=== PATIENT | male | born 1930 | race Caucasian/White ===

== ENCOUNTER 2016-09-05 13:09 | Emergency (ER) | payer MEDICARE, OTHER ==
[~2016-09-05] VITALS: Ht 165.1 cm; Wt 92.7 kg
[~2016-09-05 13:09] MED LIST: CHLO25TA2 PO; CITA10SO PO; GLUCOSAMINE PO; LOR75 PO; LOVA20TA7 PO; MVI PO; POTA20TA16 PO; TYL325 PO
[2016-09-05 13:12] VITALS: BP 153/77; PULSE 122; RESP 15; O2SAT 97
[2016-09-05] MEDS ORDERED: Ondansetron 2 mg/mL 2 mL Inj IV PRN (13:30)
[2016-09-05 14:13] LABS: BASOPHILS % (AUTO) 0.1 % (0-3); EOSINOPHILS % (AUTO) 0.6 % (0-5); MONOCYTES % (AUTO) 2.3 % (4-12); Mean Corpuscular Hemoglobin 32.5 pg (27.0-35.0); NEUTROPHILS % (AUTO) 92.9 % (40-74); Platelet Count 184 bil/L (150-400)
--- NOTE | 2016-09-05 14:31 | ED.REPORT ---
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 The patient fell from the second or third rung of a ladder while pruning trees in his yard. He is ambulatory and does not describe any modifying factors for the pain. Associated symptoms include weakness in lower extremities and diarrhea onset today. He denies any incontinence, chest pain, feelings of faintness, fever, SOB , or abdominal pain. He reports having done a lot of physical yard work yesterday and has not eaten anything today. He currently has no PCP and takes hydrocodone medication at home. He does not smoke. Nursing Notes Stated Complaint: BACK PAIN,FELL OFF LADDER Chief Complaint: Multiple Trauma/Fall Nursing Notes Reviewed: Yes Allergies: Coded Allergies: No Known Allergies (Verified , 03/27/09) Scheduled Acetaminphen-Expunged Drug, Do Not Renew! (Acetaminphen-Expunged Drug, Do Not Renew!) 325 Mg Tablet 650 MG PO PRN Chlorthalidone (Chlorthalidone) 25 Mg Tablet 25 MG PO DAILY Chlorthalidone-Expunged Drug, Do Not Renew! (Chlorthalidone-Expunged Drug, Do Not Renew!) 25 Mg Tablet 25 MG PO DAILY Citalopram-Expunged Drug, Do Not Renew! (Citalopram-Expunged Drug, Do Not Renew! ) 10 Mg/5 Ml Solution 10 MG PO AM Glucosamine Sulfate (Glucosamine) Tab 1,500 MG PO DAILY Hydrocod/APAP-Expunged, Do Not Renew! (Hydrocod/APAP 7.5/500-Expunged, Do Not Renew!) 1 Tab Tablet 1 TAB PO PRN Lovastatin-Expunged Drug, Do Not Renew! (Mevacor-Expunged Drug, Do Not Renew!) 20 Mg Tablet 20 MG PO HS Potassium Chl-Expunged Drug, Do Not Renew! (G-Ukh-Qregoban Drug, Do Not Renew!) 20 Meq Tab.prt.sr 20 MEQ PO BID Potassium Chloride (Potassium Chloride) 40 Meq/15 Ml Liquid 40 MEQ PO DAILY Pramipexole Dihydrochloride (Pramipexole Dihydrochloride) 0.5 Mg Tablet 0.5 MG PO HS Terazosin (Terazosin) 5 Mg Capsule 10 MG PO HS Therapeutic Multivit/Minerals-Expunged Drug, (Therapeutic Multivit/Minerals- Expunged Drug,) 1 Ea Tab 1 TAB PO DAILY Venlafaxine (Venlafaxine) 37.5 Mg Tablet 37.5 MG PO DAILY Scheduled PRN Hydrocodone-Acetaminophen 7.5-325 mg (Hydrocodone-Acetaminophen 7.5-325 mg) 1 Each Tablet 1-2 TABLET PO Q4H PRN PRN For Pain Tramadol (Tramadol) 50 Mg Tablet 50 MG PO Q6H PRN PRN For Pain Miscellaneous Medications Acetaminophen (Tylenol Arthritis) 650 Mg Tablet.er 650 MG PO Cholecalciferol (Vitamin D3) (Vitamin D3) 1,000 Unit Tab.chew 1,000 UNIT PO General Time Seen by MD: 13:19 Chief Complaint Back pain Hx Obtained From: Patient Arrived By: Walk-in Sudden in Onset?: Yes Onset Occurred: 4 days ago Symptom Duration: Since onset Caused by: Fall (2nd or 3rd rung of ladder) Location: : Generalized Radiation: : Does not radiate Severity: Current: Moderate Severity: Maximum: Moderate Recent Healthcare: No recent doctor visit Similar Sx Previous: No Past Medical History Past Medical History Hypertension Depression Hyperlipidemia Arthritis Past Surgical History Total hip arthroplasty Left carpal tunnel release bilateral inguinal hernia repear Family History Diabetes mellitus Smoking History Never Smoker Social History Alcohol Use: 1-3 per day Drug Use: Denies drug use Other Social History: Good social support, , Local resident Occupation Retired Ambulatory Status Independent Review of Systems Constitutional: Denies: Fever Respiratory: Denies: Shortness of breath GI: Reports: Diarrhea, Denies: Abdominal pain Male: Denies Incontinence Musculoskeletal: Reports: Back pain Neurologic: Reports: Weakness (lower extremities), Denies: Lightheaded Complete sys rev & neg: except as marked. Physical Exam Initial Vital Signs Vital Signs (First) Date Time Temp Pulse Resp B/P Pulse Ox O2 Delivery O2 Flow Rate FiO2 09/05/16 13:12 36 122 15 153/77 97 Room Air Initial VS: Reviewed General/Constitutional: Awake, Alert Respiratory / Chest: Atraumatic, Breath sounds NL, Breath sounds = bilat, No respiratory distress Cardiovascular: Heart rate NL, Regular rhythm, Heart sounds NL Heart rate is 104 at recheck. Abdomen: Atraumatic, Soft Tenderness/Guarding/Rebound: Positive: Tender epigastric (mild tenderness to epigastric) possible pulsatile mass. Back: Atraumatic, Full range of motion Neurologic: Oriented X3, Speech NL, No motor deficits, No sensory deficits Neck: Atraumatic, Supple, Full range of motion Lower Extremity / Pelvis / MS: Atraumatic, Full range of motion Skin: Atraumatic, Color NL, No rash, Warm, Dry Head / Eyes: Atraumatic, Normocephalic, PERRL, EOMI ENT: Atraumatic, Airway patent, Mucous membranes moist Upper Extremity / MS: Atraumatic, Full range of motion Psychiatric: Affect NL, Mood NL Interpretation & Diagnostics Interpretation & Diagnostics: Abdomen US IMPRESSION: A normal caliber of the aorta. A small portion of the aorta could not be seen due to bowel gas. Depending on clinical symptoms followup by CT scanning might be warranted. Dictated by: Denis Novak M.D. on 09/05/2016 at 14:54 Approved by: Denis Novak M.D. on 09/05/2016 at 14:55 Lab Results Interpretation Result Diagram: 09/05/16 1400 09/05/16 1400 Test 09/05/16 14:00 09/05/16 14:27 09/05/16 14:30 09/05/16 15:29 White Blood Count 8.1th/mm3 (3.8-10.1) Red Blood Count 4.46mil/mm3 (4.40-5.80) Hemoglobin 14.5g/dL (13.8-17.2) Hematocrit 41.5% (41.0-50.0) Mean Corpuscular Volume 93.0fL (81-100) Mean Corpuscular Hemoglobin 32.5pg (27.0-35.0) Mean Corpuscular Hemoglobin Concent 34.9% (32.0-37.0) Red Cell Distribution Width 14.2% (12.3-15.4) Platelet Count 184bil/L (150-400) Neutrophils (%) (Auto) 92.9% (40-74) Lymphocytes (%) (Auto) 4.0% (14-46) Monocytes (%) (Auto) 2.3% (4-12) Eosinophils (%) (Auto) 0.6% (0-5) Basophils (%) (Auto) 0.1% (0-3) Sodium Level 135mEq/L (134-144) Potassium Level 4.3mEq/L (3.5-5.2) Chloride Level 101mEq/L (97-108) Carbon Dioxide Level 18mmol/L (18-29) Blood Urea Nitrogen 24mg/dL (8-27) Creatinine 1.13mg/dL (0.76-1.27) Estimat Glomerular Filtration Rate 66mL/min (>59) Glucose Level 185mg/dL (60-99) Calcium Level 8.3mg/dL (8.5-10.1) Magnesium Level 1.6mg/dL (1.6-2.6) Total Bilirubin 0.9mg/dL (0.0-1.2) Aspartate Amino Transf (AST/SGOT) 28U/L (0-50) Alanine Aminotransferase (ALT/SGPT) 22U/L (0-44) Alkaline Phosphatase 79U/L (25-160) Troponin T 0.013ug/L (0.0-0.011) Pro-B-Type Natriuretic Peptide 107.3pg/mL (0-486) Total Protein 6.6g/dL (6.4-8.4) Albumin 4.0g/dL (3.4-5.0) Lactic Acid Level 2.3mmol/L (0.4-2.0) D-Dimer 1.2mg/L (<0.50) ECG Interpretation ECG Interpretation: Sinus Tachycardia. Rate is 114. Time: 13:19 Interpreted by: ED physician X-Ray Interpretation Xray Interpretation: Lumbar Spine XR IMPRESSION: The degenerative disc disease and facet osteoarthritis along the lumbosacral line is moderately severe overall, without subluxation, and without acute compression fracture seen. MR scanning might be warranted if hidden osseous injury is clinically suspected or if traumatic disc herniation also would be suspected. Dictated by: Denis Novak M.D. on 09/05/2016 at 15:05 Approved by: Denis Novak M.D. on 09/05/2016 at 15:06 Interpretation / Wet Read by: Interpret - Radiologist Re-Eval/Medical Decision Med Decision/Clinical Course 85-year-old male presenting with low back pain. He is tachycardic on arrival. The patient denies fevers he denies chest pain he denies shortness of breath. Given his back pain and tachycardia aortic aneurysm is ruled out. Further imaging shows no acute lumbar spine fracture, the patient is neurologically intact. Laboratory evaluation done to assess his tachycardia shows a minimal elevation of troponin, in the indeterminate range and not positive. Additionally he has a minimally elevated lactate. Has no fever and no leukocytosis. His d-dimer is also elevated. We will proceed with CT angiogram, urinalysis is pending and troponin will be trended. With IV fluids and pain medication his tachycardia is improving. The patient's preference is to go home, I believe if his troponin is stable CT angiogram is without acute problem and his subsequent emergency department course is uneventful this would be reasonable. Source of Hx: Old records Re-Evaluation/Progress #1: Time of Eval: 15:22 Re-Evaluation/Progress Note: Rechecked patient who is now accompanied by his . Patient reports right leg cramp. Heart rate is 104. Explained test results and plan for discharge. Re-Evaluation/Progress #2: Time of Eval: 15:35 Re-Evaluation/Progress Note: Rechecked patient. Explained plan for angiogram. Patient understands and agrees with plan. Counseled Regarding: Diagnosis, Lab results, When/why to return to ED Discharge & Departure Shift Change Sign-Out Patient Care Transferred: Yes Discussed Complaint(s): Yes Laboratory Evaluation: Ordered, not yet done Imaging Studies: Ordered, not yet done Additonal Information: see MDM. Pt would like to go home. Impression: Primary Impression: Low back pain Chronicity: acute Back pain laterality: midline Sciatica presence: without sciatica Qualified Code: M54.5 - Low back pain Additional Impression: Tachycardia Disposition: Home Discharge Condition All VS Reviewed: Yes Condition: Stable Referrals: Manohar Atkins MD (PCP) Care Transferred to: Dr. Moctezuma Care Transferred at: 15:00 Scribe Attestation Portions of this note were transcribed by Pa Zamora and Valencia Flores. I, Dr. Trevino personally performed the history, physical exam and medical decision- making; I reviewed and confirmed the accuracy of the information in the transcribed note. Signed by: Pa Zamora and Valencia Flores, Sree, 2016 and 1451. copies to: Manohar Atkins MD, Donald L MD Sep 05, 2016 14:31 Pa Zamora Sep 05, 2016 14:41 VALENCIA FLORES Sep 05, 2016 15:05
[2016-09-05 14:37] LABS: Magnesium 1.6 mg/dL (1.6-2.6)
[2016-09-05 14:42] LABS: TROPONIN T 0.013 ug/L (0.0-0.011)
--- NOTE | 2016-09-05 14:57 | DRSVH ---
PROCEDURE: US ABDOMEN, LIMITED ([id number]) INDICATIONS: eval for AAA TECHNIQUE: Real-time focused scanning was performed of the abdomen, with image documentation. COMPARISON: None. FINDINGS: No evidence for abdominal aortic aneurysm. IMPRESSION: A normal caliber of the aorta. A small portion of the aorta could not be seen due to mookie wel gas. Depending on clinical symptoms followup by CT scanning might be warranted. Dictated by: Denis Novak M.D. on 09/05/2016 at 14:54 Approved by: Denis Novak M.D. on 09/05/2016 at 14:55
[2016-09-05] MEDS ORDERED: CHOL10008 PO (15:07)
[2016-09-05] MEDS ORDERED: HYG25 PO (15:07)
[2016-09-05] MEDS ORDERED: VENL37.57 PO (15:07)
[2016-09-05] MEDS ORDERED: HYDR-3825 PO (15:07)
[2016-09-05] MEDS ORDERED: TRAM50TA2 PO (15:07)
[2016-09-05] MEDS ORDERED: POTA40LI2 PO (15:07)
[2016-09-05] MEDS ORDERED: ACET-2766 PO (15:07)
[2016-09-05] MEDS ORDERED: PRAM0.5T10 PO (15:07)
[2016-09-05] MEDS ORDERED: TERA5CAP6 PO (15:07)
--- NOTE | 2016-09-05 15:08 | DRSVH ---
PROCEDURE: X-RAY LUMBAR SPINE, 2 OR 3 VIEW INDICATIONS: back pain post fall TECHNIQUE: 3 views of the lumbar spine were acquired. COMPARISON: [facility], CR, SPINE LUMB 2 OR 3VW, 02/11/2016 , 9:37. FINDINGS: Bones: 5 [id number] vertebrae are present. There is normal bony alignment. No vertebral body compression fractures. No suspicious bony lesions. There is moderately severe degenerative disc dis ease and facet osteoarthritis over the lumbosacral spine, as was previously the case 02/11/16 by plain films. Soft tissues: Overlying bowel gas pattern is normal. No suspicious soft tissue calcifications. 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 MR scannin g might be warranted if hidden osseous injury is clinically suspected or if traumatic disc herniation also would be suspected. Dictated by: Denis Novak M.D. on 09/05/2016 at 15:05 Approved by: Denis Novak M.D. on 09/05/2016 at 15:06
[2016-09-05] MEDS ORDERED: 0.9% Sodium Chloride 1,000 ML IV ONE (15:10)
[2016-09-05] MEDS ORDERED: HYDROcodone-APAP 5-325 mg Tablet PO ONE (15:40)
[2016-09-05 16:00] LABS: APPEARANCE,URINE CLEAR (CLEAR,HAZY); COLOR,URINE YELLOW (YELLOW); OCCULT BLOOD,URINE TRACE (NEGATIVE)
[2016-09-05 16:01] LABS: UROBILINOGEN,URINE NORMAL (NORMAL)
--- NOTE | 2016-09-05 16:02 | DRSVH ---
PROCEDURE: X-RAY CHEST ONE VIEW, PORTABLE ([id number]) INDICATIONS: tachycardia elevated lactate TECHNIQUE: One view of the chest was acquired. COMPARISON: [facility], , CHEST 2VW, 05/23/2012, 9:14. FINDINGS: Surgical changes and devices: None. Lungs and pleura: No pleural effusions or pneumothorax. Lungs are likely clear, and no definite jayna nge from prior study in 2011 is found considering differences in angulation. Mediastinum: Mediastinal contours appear normal. Heart size is normal. Bones and chest wall: No suspicious bony lesions. Overlying soft tissues appear unremarkable. IMPRESSION: A heart size at or just above the upper limits of normal, no definite acute disease. CT pulmonary angiogram is scheduled. Dictated by: Denis Novak M.D. on 09/05/2016 at 15:59 Approved by: Denis Novak M.D. on 09/05/2016 at 16:00
--- NOTE | 2016-09-05 17:03 | DRSVH ---
PROCEDURE: CT ANGIO CHEST PULMONARY EMBOLISM ([id number]) INDICATIONS: elevated dimer tachycardia TECHNIQUE: After the administration of intravenous contrast, 2 mm thick sections acquired from the pulmonary api loulou to the posterior costophrenic angles. 3-dimensional maximum intensity projection (MIP) coronal a nd sagittal reformats were then acquired through the thorax. For radiation dose reduction, the follo wing was used: automated exposure control, adjustment of mA and/or kV according to patient size. COMPARISON: [facility], CR, XR CHEST 1VW (PORTABLE), 09/05/2016, 15:06. FINDINGS: Image quality: Excellent. Pulmonary arteries: Pulmonary arteries are normal in size, and demonstrate no intraluminal filling d efects to suggest central pulmonary embolism. Lungs and pleura: Lungs are clear. No pleural effusions or pneumothorax. Central and peripheral ai rways are patent. Mediastinum: Heart size is normal, without pericardial effusion. No mediastinal or hilar adenopathy . Thoracic aorta is normal in caliber and enhancement. Esophagus is normal in caliber, without hiat al hernia. Bones and chest wall: No suspicious bony lesions. Ribs and thoracic spine appear intact throughout. Thyroid gland is not well visualized due to the early phase of contrast enhancement. No axillary o r supraclavicular adenopathy. Abdomen: Visualized upper abdominal solid organs appear normal in the early arterial phase of enhanc ement. IMPRESSION: No pulmonary embolus seen, source of current symptoms is not found. Dictated by: Denis Novak M.D. on 09/05/2016 at 17:00 Approved by: Denis Novak M.D. on 09/05/2016 at 17:01
[2016-09-05 18:39] VITALS: BP 118/67; PULSE 95
== END 2016-09-05 18:30 | disposition home or self-care (01) ==
LOC: SED 13:09
DX: M54.5 Low back pain (principal); W11.XXXA Fall on and from ladder, initial encounter; Y92.007 Garden or yard of unspecified non-institutional (private) residence as the place of occurrence of the external cause; Y93.H2 Activity, gardening and landscaping; Y99.8 Other external cause status; R00.0 Tachycardia, unspecified; M62.81 Muscle weakness (generalized); R19.7 Diarrhea, unspecified; M06.031 Rheumatoid arthritis without rheumatoid factor, right wrist; M06.032 Rheumatoid arthritis without rheumatoid factor, left wrist; I10 Essential (primary) hypertension; E11.9 Type 2 diabetes mellitus without complications; G47.30 Sleep apnea, unspecified; Z96.643 Presence of artificial hip joint, bilateral
CPT/HCPCS: 36415; 71010; 71275; 72100; 76705; 80053; 81000; 83605; 83735; 83880; 84484; 85025; 85379; 93005; 96360; 99285; J7030; Q9967